=== PATIENT | female | born 1960 | race Caucasian/White ===

== ENCOUNTER 2019-06-24 10:26 | Emergency (ER) | payer OTHER, SELFPAY ==
[2019-06-24 10:30] VITALS: BP 124/62; PULSE 88; RESP 16; TEMP 36.2; O2SAT 95; BMI 20.4
--- NOTE | 2019-06-24 10:53 | ED.DCSUM_ITS ---
- ER Visit Summary Date of Service: 06/24/19 Chief Complaint: Thumb circular laceration History of Present Illness: The patient is a 59 F and dominant. 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 This occurred within the last hour. She states her tetanus is up-to-date. Denies any other injuries. No numbness. Full range of motion. Physical Examination: Well-appearing older female. Vital signs stable afebrile. HEENT exam unremarkable. Lungs are clear to auscultation. Heart regular rhythm. Abdomen soft. Remedies moves all 4 neurovascular intact the right thumb dorsum over the interphalangeal joint there is a circular partial avulsion of the tissue with active bleeding. She has full flexion-extension of the thumb against resistance. Range of motion is intact. No signs of infection. Skin is not completely gone I think I contact this down. No signs of foreign body or infection. Test Results: None Emergency Department Course and Treatment: Procedure note: Digital block right thumb using lidocaine. Once proper anesthetic was obtained wound was cleaned with Shur-Clens wash with saline irrigated and explored. Closed using 4 simple interrupted 5-0 Ethilon sutures. I tacked down the partial avulsion. Patient tolerated well. I instructed her on wound care. Treatment Plan: Wound care. Suture removal 7 to 10 days. Return if any signs of infection. Disposition: Discharge Impression: Right thumb circular partial avulsion laceration with ER repair of 2.5 centimeters This note was generated with [employer] dictation software. It may contain incorrect words, spelling, and punctuation that were not noted in review of the chart prior to signing ED Disposition - Plan for ED Patient: Referrals: Román Collier MD [Primary Care Provider] -
--- NOTE | 2019-06-24 10:55 | ED.DEP ---
ED Disposition - Plan for ED Patient: Disposition: Home or Assisted Living Instructions: LACERATION, Hand Referrals: Román Collier MD [Primary Care Provider] - 10 Day for suture removal Additional Instructions: Keep wound clean and dry. May get wet I do not wet soaking anything. Dried off feel well. You may leave the dressing on 3 days is also stays dry and clean. Then start changing it daily. Clean with soap and water peroxide and water at least once a day. Plan blank ointment. If any signs of infection return. Suture removal and no less than 7 to 10 days.
[2019-06-24 11:15] VITALS: BP 129/68; PULSE 74; RESP 15; O2SAT 96
== END 2019-06-24 11:19 | disposition home or self-care (01) ==
PROVIDERS: Emergency Provider Emergency Medicine; Family Provider Family Medicine; PCP Family Medicine
DX: S61.011A Laceration without foreign body of right thumb without damage to nail, initial encounter (principal); E11.9 Type 2 diabetes mellitus without complications; I10 Essential (primary) hypertension; Z79.82 Long term (current) use of aspirin; Z79.84 Long term (current) use of oral hypoglycemic drugs; Z79.899 Other long term (current) drug therapy; W26.0XXA Contact with knife, initial encounter; Y93.G1 Activity, food preparation and clean up; Y92.000 Kitchen of unspecified non-institutional (private) residence as the place of occurrence of the external cause; Y99.8 Other external cause status
CPT/HCPCS: 12001; 99283

== ENCOUNTER 2024-02-05 13:18 | Emergency (ER) | payer MEDICARE, OTHER, SELFPAY ==
[2024-02-05 13:20] VITALS: BP 145/62; PULSE 95; RESP 20; TEMP 35.6; O2SAT 97; BMI 46.0
--- NOTE | 2024-02-05 13:36 | CT_ITS ---
STUDY: CT ABDOMEN AND PELVIS WITHOUT CONTRAST REASON FOR EXAM: Female, 64 years old. Worsening left flank pain. RADIATION DOSAGE (If Supplied By Facility): CTDIvol = ( 22.71 ) mGy, DLP = ( 1096.05 ) mGycm TECHNIQUE: Transaxial images were obtained from the dome of the diaphragm to the symphysis pubis without oral contrast, and without intravenous contrast. Sagittal and coronal images were reconstructed. Individualized dose optimization techniques were used for this CT. COMPARISON: None. FINDINGS: Minimal increased linear markings in the posterior medial segment of the right lower lobe. This may represent a focal area of atelectasis and/or scarring. The visualized portions of the heart are within normal limits. Normal liver. Normal gallbladder and extrahepatic biliary system. There are multiple benign calcified granulomata of the spleen. There is evidence of a 1.2 cm calcified splenic artery aneurysm. Normal pancreas. Normal bilateral adrenal glands. Normal right kidney. Normal left kidney. There is a small hiatal hernia. Normal small intestine. There are scattered colonic diverticula consistent with diverticulosis. The appendix is visualized and appears normal. There is scattered atherosclerotic calcification of the abdominal aorta, without a demonstrated aneurysm. Normal inferior vena cava. Normal retroperitoneum. Normal urinary bladder. Normal abdominal wall. Normal osseous structures. CT/Abdomen/Pelvis without Cont IMPRESSION: Scattered sigmoid diverticula. 1.2 cm calcified splenic artery aneurysm. Electronically Signed: Ke Solomon MD at 14:12 EDT ,
[2024-02-05] MEDS: Ketorolac 30 MG/ML Syringe IV (13:43)
--- NOTE | 2024-02-05 13:49 | EX.ED.DYSGE1 ---
HPI History of Present Illness Chief Complaint: Flank Pain Informant: patient Narrative Narrative: 64-year-old female presenting to the emergency room with acute low back pain. Patient states for the past 4 to 5 days she has had pain left low back that radiates onto her left side. She notes is worse with movement of the leg and with twisting to the left and getting from sitting to standing. She denies any known trauma or surgeries. No fevers or rashes. No urinary or bowel symptoms. She denies any known back trauma. She notes that she has a history of diabetes and hypertension. Patient denies any history of immunosuppression or cancer. No IV drug use. No radiation to legs. [facility] Medical History (Updated 02/05/24 @ 14:[address] Wade Huntley, DO) Hypertension Diabetes mellitus Home Medications ?Medication ?Instructions ?Recorded ?Last Taken ?Type Potassium Chloride [Klor-Con M20] 20 meq PO DAILY 10/09/15 Unknown History aspirin 81 mg chewable tablet 81 mg PO DAILY@0800 10/09/15 Unknown History citalopram 20 mg tablet 20 mg PO DAILY 10/09/15 Unknown History lisinopril 10 1 tab PO DAILY 10/09/15 Unknown History mg-hydrochlorothiazide 12.5 mg tablet (Zestoretic) loratadine 10 mg tablet (Allergy 10 mg PO DAILY 10/09/15 Unknown History Relief (loratadine)) cetirizine 10 mg capsule 10 mg PO DAILY 06/24/19 Unknown History ferrous sulfate 325 mg (65 mg 325 mg PO DAILY 06/24/19 Unknown History iron) tablet metformin 500 mg tablet,extended 500 mg PO DAILY 06/24/19 Unknown History release 24 hr montelukast 10 mg tablet 10 mg PO DAILY 06/24/19 Unknown History omeprazole 40 mg capsule,delayed 40 mg PO DAILY 06/24/19 Unknown History release ropinirole 0.5 mg tablet 0.5 mg PO TID 06/24/19 Unknown History tamsulosin 0.4 mg capsule 0.4 mg PO DAILY 06/24/19 Unknown History hydrocodone-acetaminophen 5-325mg 1 tab PO Q6H PRN PRN Pain 3 days 02/05/24 Unknown Rx 5mg-325mg #12 TABLETS ibuprofen 600 mg tablet 600 mg PO Q6H PRN PRN pain #20 02/05/24 Unknown Rx TABLETS prednisone 20 mg tablet 40 mg (2 x 20 mg) PO DAILY #10 02/05/24 Unknown Rx TABLETS Allergy/AdvReac Type Severity Reaction Status Date / Time acetaminophen (From Percocet) AdvReac Nausea/Vom/ Verified 02/05/24 13:20 Diarrhea oxycodone HCl (From Percocet) AdvReac Nausea/Vom/ Verified 02/05/24 13:20 Diarrhea Surgical History (Updated 02/05/24 @ 13:[address] Wade Huntley DO) H/O shoulder surgery History of bilateral carpal tunnel release Social History Smoking Status: Never smoker ROS ROS ED Constitutional Constitutional ED: Denies chills, fever(s) or weight loss Eyes Eyes: Denies change in vision or diplopia ENT ENT ED: Denies ear pain, rhinorrhea or sore throat Cardiovascular Cardiovascular: Denies chest pain, orthopnea, palpitations or racing heartbeat Respiratory/Chest Respiratory/Chest: Denies cough, dyspnea or orthopnea Gastrointestinal Gastrointestinal: Denies abdominal pain, constipation, diarrhea, nausea or vomiting Genitourinary Genitourinary ED: Denies dysuria, hematuria or urinary frequency Musculoskeletal Musculoskeletal: Reports back pain; Denies arthralgias, myalgias or neck pain Integumentary Denies abscess or rash Neurologic Neurologic: Denies headache(s), paresthesias or weakness Psychiatric Psychiatric: Denies anxiety, depression, suicidal ideation or suicidal thoughts Endocrine Endocrinology: Denies polydipsia, polyphagia or polyuria Allergic/Immunologic Allergic/Immunologic ED: Denies mouth swelling, tongue swelling or urticaria EXAM Physical Exam Const Vital Signs: 02/05/24 13:20 Temperature 96.1 F L Temperature Source Temporal Pulse Rate 95 Respiratory Rate 20 H Blood Pressure 145/62 H Blood Pressure Mean 89 Pulse Ox 97 Oxygen Delivery Method Room Air Positive well nourished, well developed and obese General Appearance ED: well developed Nutritional Appearance: obese HEENT Reports normocephalic, head/scalp atraumatic and moist mucous membranes Eyes PERRL and EOMs intact bilaterally Neck no lymphadenopathy, supple and no JVD Resp normal respiratory effort and clear to auscultation bilaterally Cardio regular rate, regular rhythm and no murmurs GI normal to inspection, nondistended, normoactive bowel sounds and non-tender Palpation: soft Back/Spine no CVA tenderness and normal ROM Back/Spine Narrative: Patient has very focal tenderness to palpation near the SI joint on the left. I do not appreciate any rashes. No tissue texture changes to suggest underlying infection. Minimal tenderness to the lumbar paraspinal musculature in the lower end of the lumbar region Extremity normal to inspection General Extremety ED: Negative for edema General Extremity: Negative for edema Neuro oriented x3 and CN's II-XII intact bilaterally Sensorium / Orientation: alert Motor Exam: strength 5/5 throughout Psych mental status grossly normal Mood & Affect: Negative for depressed or tearful Skin no rashes or lesions noted and no wounds MDM MDM MDM Narrative Medical decision making narrative: differential diagnosis includes but not limited to lumbar myofascial sprain strain degenerative disc disease disc herniation sacroiliitis infectious processes shingles pyelonephritis kidney stone Basic blood work showed a glucose of 112 normal white count. Urinalysis 5-10 squamous cells but no overt infection. CT of the flank did not demonstrate any acute process to explain her symptoms. Clinically she is very tender at the SI joint. Will treat with anti-inflammatories short course of prednisone and a few [place]. Would recommend PCP follow-up. History & Record Review Discussion w/independent historian: Patient Lab Data Attestation: I reviewed the patient's lab results. Labs: Laboratory Results - last 24 hr 02/05/24 02/05/24 13:35 13:45 WBC 7.5 RBC 4.17 L Hgb 12.5 Hct 38.9 MCV 93.3 MCH 30.0 MCHC 32.1 RDW Std Deviation 43.5 RDW Coeff of Cathy 12.8 Plt Count 282 MPV 8.6 Immature Gran % (Auto) 0.500 Neut % (Auto) 58.0 Lymph % (Auto) 30.3 [place] % (Auto) 7.2 Eos % (Auto) 3.6 Baso % (Auto) 0.4 Absolute Neuts (auto) 4.3 Absolute Lymphs (auto) 2.27 Nucleated RBC % 0 Sodium 139 Potassium 3.5 Chloride 103 Carbon Dioxide 26.0 Anion Gap 10 BUN 13 Creatinine 0.99 Estim Creat Clear Calc 61.89 Est GFR (MDRD) Af Amer 72 Est GFR (MDRD) Non-Af 60 BUN/Creatinine Ratio 13.1 Glucose 112 H Calcium 9.3 Urine Color Straw Urine Clarity Clear Urine pH 5.0 Ur Specific [place] 1.010 Urine Protein Negative Urine Glucose (UA) Normal Urine Ketones Negative Urine Occult Blood Negative Urine Nitrite Negative Urine Bilirubin Negative Urine Urobilinogen Normal Ur Leukocyte Esterase 100 H Urine RBC 0 SEEN Urine WBC 0-5 SEEN Ur Squamous Epith Cells 5-10 SEEN Urine Bacteria 1+ Urine Mucus 0 SEEN Radiography Diagnostic Testing: Clinical Impression(s) from Imaging Studies Abdomen/Pelvis CT 02/05/24 13:36 IMPRESSION: Scattered sigmoid diverticula. 1.2 cm calcified splenic artery aneurysm. Electronically Signed: Ke Solomon MD at 14:12 EDT , Discharge Plan Triage Chief Complaint: Flank Pain ED Provider: Wade Huntley Dx/Rx/DC Orders Clinical Impression: Acute back pain, SI (sacroiliac) joint inflammation Instructions: ED Sacroiliitis Prescriptions: New prednisone 20 mg tablet 40 mg PO DAILY Qty: 10 0RF ibuprofen 600 mg tablet 600 mg PO Q6H PRN PRN (Reason: pain) Qty: 20 0RF hydrocodone-acetaminophen 5-325 mg tablet 1 tab PO Q6H PRN PRN (Reason: Pain) 3 Days Qty: 12 0RF No Action citalopram 20 MG tablet 20 mg PO DAILY lisinopril-hydrochlorothiazide [Zestoretic] 1 TABLET tablet 1 tab PO DAILY Potassium Chloride [Klor-Con M20] 20 MEQ Tab.Er.Prt 20 meq PO DAILY aspirin 81 MG tablet,chewable 81 mg PO DAILY@0800 loratadine [Allergy Relief (loratadine)] 10 MG tablet 10 mg PO DAILY omeprazole 40 MG capsule,delayed release(DR/EC) 40 mg PO DAILY ropinirole 0.5 MG tablet 0.5 mg PO TID ferrous sulfate 325 MG tablet 325 mg PO DAILY cetirizine 10 MG capsule 10 mg PO DAILY montelukast 10 MG tablet 10 mg PO DAILY metformin 500 MG tablet extended release 24 hr 500 mg PO DAILY tamsulosin 0.4 MG capsule 0.4 mg PO DAILY Primary Care Provider: Román Collier Referrals: Román Collier MD [Primary Care Provider] - 1 Week if not improving Print Language: [place] Citizen Disposition Disposition: Home, Self Care
[2024-02-05 13:53] LABS: Mucous, Urine 0 SEEN /hpf (<or=2+); Red Blood Cells-Urine 0 SEEN /hpf (0-5)
[2024-02-05 13:55] LABS: Absolute Lymphocyte Count 2.27 X10^3/uL (0.83-4.51); Absolute Neutrophil Count 4.3 X10^3/uL (2.0-7.7); Basophil# 0.03 X10^3/uL; Basophil% 0.4 % (0-1); Eosinophil# 0.27 X10^3/uL; Eosinophils% 3.6 % (0-5); Hematocrit 38.9 % (37-47); Hemoglobin 12.5 g/dL (12.0-15.0); Lymphocyte # 2.27 X10^3/ul (0.83-4.51); Lymphocyte % 30.3 % (19-41); Mean Corp Hgb Conc 32.1 g/dL (32-36); Mean Corpuscular Volume 93.3 fL (81-99); Mean Platelet Vol. 8.6 fl (6.2-12.0); Monocyte# 0.54 X10^3/uL; Monocyte% 7.2 % (0-10); NRBC Flagged by Analyzer 0 % (0-5); Neutrophil # 4.34 X10^3/uL (2.7-7.7); Platelet Count 282 K/mm3 (150-450); RBC Distribution Width CV 12.8 % (11.6-14.6); RBC Distribution Width SD 43.5 fl (35.1-43.9); Red Blood Count 4.17 M/mm3 (4.2-5.4); White Blood Count 7.5 K/mm3 (4.4-11.0)
[2024-02-05 14:08] LABS: Color, Urine Straw (Yellow); Glucose, Dipstick Normal (Normal); Ketone-Dipstick Negative (Negative); Leukocyte Esterase-Dipstick 100 /ul (Negative); Nitrite-Dipstick Negative (Negative); Occult Blood-Urine Negative /ul (Negative); Protein-Dipstick Negative (Negative); Urine Bilirubin Dipstick Negative (Negative); Urine Clarity Clear (Clear); Urine Urobilinogen Normal (Normal)
[2024-02-05 14:08] LABS: Anion Gap 10 (5-15); BUN 13 mg/dL (7-18); BUN/Creat Ratio 13.1 RATIO (10-20); Calcium,Total 9.3 mg/dL (8.5-10.1); Chloride 103 mmol/L (98-107); Creatinine, Serum 0.99 mg/dL (0.55-1.02); EST Glomerular Filtration Rate 60 mL/min (>60); Est Glom Filt Rate - Afr Amer 72 mL/min (>60); Estimated Creatinine Clearance 61.89 ml/min; Glucose 112 mg/dL (74-106); Potassium 3.5 mmol/L (3.5-5.1); Sodium Level 139 mmol/L (136-145)
[2024-02-05 14:41] LABS: Bacteria 1+ /hpf (None Seen); Squamous Epithelial Cells - UA 5-10 SEEN /hpf (5-10); White Blood Cells 0-5 SEEN /hpf (0-5)
[2024-02-05 15:04] VITALS: BP 99/58; PULSE 72; RESP 16; TEMP 36.4; O2SAT 97
== END 2024-02-05 15:04 | disposition home or self-care (01) ==
PROVIDERS: Emergency Provider Emergency Medicine; PCP Family Medicine; Visit Provider Emergency Medicine
DX: M46.1 Sacroiliitis, not elsewhere classified (principal); E11.9 Type 2 diabetes mellitus without complications; M54.9 Dorsalgia, unspecified; I10 Essential (primary) hypertension; E66.9 Obesity, unspecified
CPT/HCPCS: 74176; 80048; 81001; 85025; 96374; 99283